=== PATIENT | female | born 1995 | race African-American/Black ===

== ENCOUNTER 2016-12-27 13:14 | Observation (INO) | payer MEDICAID ==
[2016-12-27] MEDS ORDERED: PREN-88 PO (14:32)
== END 2016-12-27 14:45 | disposition home or self-care (01) ==
LOC: L&D 13:14
PROVIDERS: ADMIT Obstetrics & Gynecology; ATTEND Obstetrics & Gynecology
DX: O26.892 Other specified pregnancy related conditions, second trimester (principal); R42 Dizziness and giddiness; Z3A.25 25 weeks gestation of pregnancy
CPT/HCPCS: 82962; 99281; G0378

== ENCOUNTER 2017-08-01 09:48 | Emergency (ER) | payer MEDICAID, MEDICARE ==
[~2017-08-01] VITALS: Ht 167.6 cm; Wt 75.0 kg
[~2017-08-01 09:48] MED LIST: PREN-88 PO
[2017-08-01 09:58] VITALS: BP 133/83
[2017-08-01] MEDS ORDERED: GUAIFENESIN-DM 200MG-20MG/10ML UDC PO ONE (10:15)
== END 2017-08-01 12:12 | disposition home or self-care (01) ==
LOC: ER 10:34
DX: J06.9 Acute upper respiratory infection, unspecified (principal); F12.10 Cannabis abuse, uncomplicated
CPT/HCPCS: 71045; 81025; 87804; 99285

== ENCOUNTER 2018-03-26 11:51 | Emergency (ER) | payer MEDICARE ==
[~2018-03-26] VITALS: Ht 167.6 cm; Wt 73.0 kg
[2018-03-26 12:11] VITALS: BP 116/83
== END 2018-03-26 17:37 | disposition home or self-care (01) ==
LOC: ER 11:51
DX: J06.9 Acute upper respiratory infection, unspecified (principal); Z91.040 Latex allergy status
CPT/HCPCS: 71045; 81025; 99283

== ENCOUNTER 2018-08-09 22:47 | Emergency (ER) | payer MEDICARE ==
[~2018-08-09] VITALS: Ht 167.6 cm; Wt 77.0 kg
[2018-08-09 23:18] VITALS: BP 108/50
== END 2018-08-10 02:23 | disposition left against medical advice (07) ==
LOC: ER 22:47
DX: Z53.21 Procedure and treatment not carried out due to patient leaving prior to being seen by health care provider (principal)

== ENCOUNTER 2019-01-02 13:54 | Day surgery (SDC) | payer MEDICAID, MEDICARE ==
[~2019-01-02] VITALS: Ht 167.6 cm; Wt 72.0 kg
[2019-01-02] MEDS ORDERED: SODIUM CHLORIDE 0.9% 1,000 ML IV ONE (14:11)
[2019-01-02] MEDS ORDERED: ONDANSETRON HCL 4MG/2ML INJ IV ONE ×2 (14:15→17:00)
[2019-01-02] MEDS ORDERED: CEFAZOLIN 1000MG PREMIX 50 ML IV ONE (14:15)
[2019-01-02] MEDS ORDERED: MORPHINE SULFATE 4 MG/ML CPJ (NOT FOR IM USE) IV ONE ×2 (14:15→17:00)
[2019-01-02 15:09] LABS: BASOPHILS % 0.4 % (0.0-2.0); EOSINOPHILS % 0.4 % (0.0-5.0); HEMATOCRIT. 26.1 % (36.0-48.0); HEMOGLOBIN. 8.5 g/dL (12.0-16.0); LYMPHOCYTES % 12.8 % (20.0-50.0); MEAN CORPUSCULAR HEMOGLOBIN 22.3 pg (28.0-32.0); MEAN CORPUSCULAR VOLUME 68.3 fL (81.0-99.0); MEAN PLATELET VOLUME 8.9 fl (7.4-10.4); MONOCYTES % 5.1 % (2.0-8.0); NEUTROPHILS % 81.3 % (40.0-76.0); PLATELET 209 x1000/uL (130-400); RED BLOOD CELL COUNT 3.82 mill/uL (4.2-5.4); RED CELL DISTRIBUTION WIDTH 19.7 % (11.6-14.6)
[2019-01-02 15:16] LABS: CHLORIDE 111 mEq/L (98-107)
[2019-01-02 15:17] LABS: INR 0.9; PARTIAL THROMBOPLASTIN TIME 26.6 sec (23.4-31.0); PROTHROMBIN TIME 9.7 sec (9.6-11.0)
[2019-01-02 15:41] LABS: B-HCG QUANTITATIVE 6285 mIU/mL (<3)
[2019-01-02 15:45] LABS: PLATELET ESTIMATE NORMAL
[2019-01-02 16:21] LABS: CLARITY URINE CLOUDY (CLEAR); COLOR URINE RED (YELLOW); KETONES URINE TRACE (NEGATIVE); LEUKOCYTE ESTERASE URINE 2+ (NEGATIVE); NITRITE URINE NEGATIVE (NEGATIVE); OCCULT BLOOD URINE 3+ (NEGATIVE); PH URINE 7.5 (4.5-8.0); PROTEIN URINE 2+ (NEGATIVE); SPECIFIC GRAVITY URINE 1.027 (1.005-1.030)
[2019-01-02 16:36] LABS: PHENCYCLIDINE URINE SCREEN NEGATIVE (NEGATIVE)
[2019-01-02 16:37] LABS: *AMPHETAMINES SCREEN URINE NEGATIVE (NEGATIVE); *BARBITURATES SCREEN URINE NEGATIVE (NEGATIVE); *BENZODIAZEPINES SCREEN URINE NEGATIVE (NEGATIVE); *COCAINE SCREEN URINE NEGATIVE (NEGATIVE); METHADONE URINE SCREEN NEGATIVE (NEGATIVE)
[2019-01-02 16:39] LABS: CANNABINOID URINE SCREEN PRESUMTIVE POSITIVE (NEGATIVE); OPIATES URINE SCREEN PRESUMTIVE POSITIVE (NEGATIVE)
[2019-01-02] MEDS ORDERED: FENTANYL CITRATE/PF 50MCG/ML 2ML VIAL IV PRN (17:45)
[2019-01-02] MEDS ORDERED: HYDROMORPHONE HCL/PF 2MG/ML CPJ IV PRN (17:45)
[2019-01-02] MEDS ORDERED: ONDANSETRON HCL 4MG/2ML INJ IV PRN ×2 (17:45→20:15)
[2019-01-02] MEDS ORDERED: PROPOFOL 200MG/20ML VIAL IV ONE ×2 (17:53→19:49)
[2019-01-02] MEDS ORDERED: LIDOCAINE HCL/PF 1% 10 MG/ML 5ML VIAL ONE (17:54)
[2019-01-02] MEDS ORDERED: MIDAZOLAM HCL 2 MG/2 ML VIAL ONE (17:54)
[2019-01-02 18:09] LABS: HEMOGLOBIN 8.1 g/dL (12.0-16.0); MEAN CORPUSCULAR HEMOGLOBIN 22.1 pg (28.0-32.0); MEAN CORPUSCULAR VOLUME 68.2 fL (81.0-99.0); PLATELET 193 x1000/uL (130-400); RED BLOOD CELL COUNT 3.67 mill/uL (4.2-5.4); RED CELL DISTRIBUTION WIDTH 19.9 % (11.6-14.6)
[2019-01-02] MEDS ORDERED: OXYTOCIN 10 UNITS/ML 1ML ONE (18:29)
[2019-01-02 18:30] VITALS: BP 112/58
[2019-01-02] MEDS ORDERED: KETAMINE HCL 50 MG/ML 10ML ONE (19:06)
[2019-01-02] MEDS ORDERED: KETOROLAC 30MG/ML VIAL ONE (19:59)
[2019-01-02] MEDS ORDERED: DEXT 5%/0.45% NACL KCL 20MEQ/L 1,000 ML IV SCH (20:02)
[2019-01-02] MEDS ORDERED: METHYLERGONOVINE MALEATE 0.2 MG/ML ONE (20:09)
[2019-01-02] MEDS ORDERED: ONDANSETRON HCL 4MG/2ML INJ IM PRN (22:00)
[2019-01-05] MEDS ORDERED: ALBUTEROL (0.083%) 2.5MG/3ML NEB ONE (11:53)
== END 2019-01-02 22:25 | disposition home or self-care (01) ==
LOC: ER 13:54 → EDBEDREQ 17:28 → OR 19:18 → ENRESERV 19:49 → OR 22:25
PROVIDERS: ATTEND Specialist
DX: O03.4 Incomplete spontaneous abortion without complication (principal); D64.9 Anemia, unspecified; Z91.040 Latex allergy status
CPT/HCPCS: 36415; 59812; 76801; 76817; 80053; 80305; 81003; 81025; 84702; 85025; 85027; 85610; 85730; 86850; 86900; 86901; 86920; 87077; 87086; 87186; 88305; 93005; 96365; 96375; 96376; 99291; J0690; J1885; J2210; J2250; J2270; J2405; J2704; J3010; J3490; J7030; J7611

== ENCOUNTER 2019-07-03 12:30 | Emergency (ER) | payer MEDICAID ==
[~2019-07-03] VITALS: Ht 167.6 cm; Wt 81.0 kg
[2019-07-03] MEDS ORDERED: SODIUM CHLORIDE 0.9% 1,000 ML IV ONE (13:14)
[2019-07-03] MEDS ORDERED: ONDANSETRON HCL 4MG/2ML INJ IV ONE (13:15)
[2019-07-03 14:23] LABS: BASOPHILS % 0.3 % (0.0-2.0); EOSINOPHILS % 0.1 % (0.0-5.0); HEMOGLOBIN. 11.1 g/dL (12.0-16.0); LYMPHOCYTES % 15.7 % (20.0-50.0); MEAN CORPUSCULAR HEMOGLOBIN 20.7 pg (28.0-32.0); MEAN CORPUSCULAR VOLUME 63.6 fL (81.0-99.0); MEAN PLATELET VOLUME 8.8 fl (7.4-10.4); MONOCYTES % 6.4 % (2.0-8.0); NEUTROPHILS % 77.5 % (40.0-76.0); PLATELET 307 x1000/uL (130-400); RED BLOOD CELL COUNT 5.35 mill/uL (4.2-5.4); RED CELL DISTRIBUTION WIDTH 19.9 % (11.6-14.6)
[2019-07-03 14:27] LABS: CHLORIDE 103 mEq/L (98-107)
[2019-07-03 14:38] LABS: CLARITY URINE CLOUDY (CLEAR); COLOR URINE YELLOW (YELLOW); KETONES URINE 3+ (NEGATIVE); LEUKOCYTE ESTERASE URINE TRACE (NEGATIVE); NITRITE URINE NEGATIVE (NEGATIVE); OCCULT BLOOD URINE NEGATIVE (NEGATIVE); PH URINE 5.5 (4.5-8.0); PROTEIN URINE 1+ (NEGATIVE); SPECIFIC GRAVITY URINE 1.037 (1.005-1.030)
[2019-07-03 14:58] LABS: B-HCG QUANTITATIVE 48945 mIU/mL (<3)
[2019-07-03 15:06] LABS: PLATELET ESTIMATE NORMAL
[2019-07-03 15:46] LABS: *AMPHETAMINES SCREEN URINE NEGATIVE (NEGATIVE); *BARBITURATES SCREEN URINE NEGATIVE (NEGATIVE); *BENZODIAZEPINES SCREEN URINE NEGATIVE (NEGATIVE); *COCAINE SCREEN URINE NEGATIVE (NEGATIVE); PHENCYCLIDINE URINE SCREEN NEGATIVE (NEGATIVE)
[2019-07-03 15:47] LABS: METHADONE URINE SCREEN NEGATIVE (NEGATIVE); OPIATES URINE SCREEN NEGATIVE (NEGATIVE)
[2019-07-03 15:52] LABS: CANNABINOID URINE SCREEN PRESUMTIVE POSITIVE (NEGATIVE)
[2019-07-03 16:52] VITALS: BP 107/46
== END 2019-07-03 16:55 | disposition home or self-care (01) ==
LOC: ER 13:03
DX: O23.41 Unspecified infection of urinary tract in pregnancy, first trimester (principal); O26.891 Other specified pregnancy related conditions, first trimester; O21.9 Vomiting of pregnancy, unspecified; R53.1 Weakness; Z3A.01 Less than 8 weeks gestation of pregnancy; Z91.040 Latex allergy status
CPT/HCPCS: 36415; 76801; 76817; 80053; 80305; 81003; 81025; 84484; 84702; 85025; 86850; 86900; 86901; 93005; 96361; 96374; 99284; J2405; J7030

== ENCOUNTER 2019-08-21 09:19 | Emergency (ER) | payer MEDICAID ==
[~2019-08-21] VITALS: Ht 175.3 cm; Wt 77.0 kg
[2019-08-21] MEDS ORDERED: ACETAMINOPHEN 325MG TABLET PO STA (09:41)
[2019-08-21] MEDS ORDERED: ONDANSETRON HCL 4MG/2ML INJ IV STA (09:41)
[2019-08-21] MEDS ORDERED: SODIUM CHLORIDE 0.9% 1,000 ML IV ONE (09:41)
[2019-08-21 09:55] LABS: HEMATOCRIT. 31.6 % (36.0-48.0); HEMOGLOBIN. 10.3 g/dL (12.0-16.0); MEAN CORPUSCULAR VOLUME 64.4 fL (81.0-99.0); MEAN PLATELET VOLUME 8.8 fl (7.4-10.4); PLATELET 269 x1000/uL (130-400); RED BLOOD CELL COUNT 4.91 mill/uL (4.2-5.4); RED CELL DISTRIBUTION WIDTH 20.7 % (11.6-14.6)
[2019-08-21 10:01] LABS: CHLORIDE 99 mEq/L (98-107)
[2019-08-21 10:03] LABS: INR 0.9
[2019-08-21 10:25] LABS: PLATELET ESTIMATE NORMAL
[2019-08-21 11:17] LABS: CLARITY URINE CLOUDY (CLEAR); COLOR URINE YELLOW (YELLOW); KETONES URINE 4+ (NEGATIVE); LEUKOCYTE ESTERASE URINE NEGATIVE (NEGATIVE); NITRITE URINE POSITIVE (NEGATIVE); OCCULT BLOOD URINE NEGATIVE (NEGATIVE); PH URINE 6.5 (4.5-8.0); PROTEIN URINE TRACE (NEGATIVE); SPECIFIC GRAVITY URINE 1.028 (1.005-1.030); UROBILINOGEN URINE 0.2 E.U./dL (0.2-1.0)
[2019-08-21 11:37] VITALS: BP 110/62
== END 2019-08-21 11:41 | disposition home or self-care (01) ==
LOC: ER 09:19
DX: R11.2 Nausea with vomiting, unspecified (principal); R51 Headache; M54.9 Dorsalgia, unspecified; Z91.040 Latex allergy status
CPT/HCPCS: 36415; 80053; 81003; 81025; 83690; 85025; 85610; 96374; 99285; J2405; J7030

== ENCOUNTER 2020-03-03 00:15 | Emergency (ER) | payer MEDICAID ==
[~2020-03-03] VITALS: Ht 167.6 cm; Wt 73.0 kg
[2020-03-03 01:06] LABS: BASOPHILS % 1.1 % (0.0-2.0); EOSINOPHILS % 0.7 % (0.0-5.0); HEMATOCRIT. 34.7 % (36.0-48.0); HEMOGLOBIN. 11.1 g/dL (12.0-16.0); LYMPHOCYTES % 30.4 % (20.0-50.0); MEAN CORPUSCULAR VOLUME 68.7 fL (81.0-99.0); MEAN PLATELET VOLUME 8.4 fl (7.4-10.4); MONOCYTES % 6.9 % (2.0-8.0); NEUTROPHILS % 60.9 % (40.0-76.0); PLATELET 306 x1000/uL (130-400); RED BLOOD CELL COUNT 5.05 mill/uL (4.2-5.4); RED CELL DISTRIBUTION WIDTH 19.1 % (11.6-14.6)
[2020-03-03 01:09] LABS: PLATELET ESTIMATE NORMAL
[2020-03-03 01:11] LABS: CHLORIDE 105 mEq/L (98-107)
[2020-03-03 01:23] LABS: CLARITY URINE CLEAR (CLEAR); COLOR URINE YELLOW (YELLOW); KETONES URINE TRACE (NEGATIVE); LEUKOCYTE ESTERASE URINE TRACE (NEGATIVE); NITRITE URINE NEGATIVE (NEGATIVE); OCCULT BLOOD URINE 3+ (NEGATIVE); PROTEIN URINE 1+ (NEGATIVE); SPECIFIC GRAVITY URINE 1.032 (1.005-1.030)
[2020-03-03] MEDS ORDERED: ACETAMINOPHEN 500MG TABLET PO ONE (01:30)
[2020-03-03 01:47] LABS: B-HCG QUANTITATIVE 1762 mIU/mL (<3)
[2020-03-03] MEDS ORDERED: CEPHALEXIN 250MG CAPSULE PO NR (02:45)
[2020-03-03 03:30] VITALS: BP 107/56
== END 2020-03-03 03:36 | disposition home or self-care (01) ==
LOC: ER 00:43
DX: O03.9 Complete or unspecified spontaneous abortion without complication (principal); Z3A.01 Less than 8 weeks gestation of pregnancy
CPT/HCPCS: 36415; 76801; 80053; 81003; 84702; 85025; 86850; 86900; 93005; 99285

== ENCOUNTER 2020-08-26 18:40 | Emergency (ER) | payer MEDICAID ==
[~2020-08-26] VITALS: Ht 167.6 cm; Wt 78.0 kg
[2020-08-26 19:22] LABS: HEMATOCRIT 37.5 % (36.0-48.0); HEMOGLOBIN 12.2 g/dL (12.0-16.0); MEAN CORPUSCULAR HEMOGLOBIN 22.9 pg (28.0-32.0); MEAN CORPUSCULAR VOLUME 70.4 fL (81.0-99.0); PLATELET 278 x1000/uL (130-400); RED BLOOD CELL COUNT 5.32 mill/uL (4.2-5.4); RED CELL DISTRIBUTION WIDTH 18.1 % (11.6-14.6)
[2020-08-26] MEDS ORDERED: MORPHINE SULFATE 4 MG/ML CPJ (NOT FOR IM USE) IV PRN (19:30)
[2020-08-26] MEDS ORDERED: MORPHINE SULFATE 10 MG/ML CPJ IV ONE (19:30)
[2020-08-26 19:33] LABS: HCG SCREEN POSITIVE
[2020-08-26 23:33] VITALS: BP 119/69
== END 2020-08-26 23:36 | disposition home or self-care (01) ==
LOC: ER 18:40
DX: O26.891 Other specified pregnancy related conditions, first trimester (principal); R10.2 Pelvic and perineal pain; Z3A.00 Weeks of gestation of pregnancy not specified; Z91.040 Latex allergy status
CPT/HCPCS: 36415; 76801; 76817; 84702; 84703; 85027; 86900; 86901; 96374; 99284; J2270; Z7610

== ENCOUNTER 2020-08-28 14:33 | Emergency (ER) | payer MEDICAID ==
[~2020-08-28] VITALS: Ht 167.6 cm; Wt 77.0 kg
[2020-08-28 15:52] LABS: BASOPHILS % 0.4 % (0.0-2.0); EOSINOPHILS % 0.5 % (0.0-5.0); HEMATOCRIT. 37.6 % (36.0-48.0); HEMOGLOBIN. 12.1 g/dL (12.0-16.0); LYMPHOCYTES % 28.5 % (20.0-50.0); MEAN CORPUSCULAR HEMOGLOBIN 22.7 pg (28.0-32.0); MEAN CORPUSCULAR VOLUME 70.5 fL (81.0-99.0); MEAN PLATELET VOLUME 8.6 fl (7.4-10.4); NEUTROPHILS % 63.6 % (40.0-76.0); PLATELET 258 x1000/uL (130-400); RED BLOOD CELL COUNT 5.33 mill/uL (4.2-5.4)
[2020-08-28 15:59] LABS: CHLORIDE 105 mEq/L (98-107)
[2020-08-28 16:07] LABS: CLARITY URINE CLOUDY (CLEAR); COLOR URINE ORANGE (YELLOW); KETONES URINE 2+ (NEGATIVE); LEUKOCYTE ESTERASE URINE 1+ (NEGATIVE); NITRITE URINE POSITIVE (NEGATIVE); OCCULT BLOOD URINE 3+ (NEGATIVE); PROTEIN URINE 2+ (NEGATIVE); SPECIFIC GRAVITY URINE 1.036 (1.005-1.030)
[2020-08-28 16:25] LABS: B-HCG QUANTITATIVE 2480 mIU/mL (<3)
[2020-08-28] MEDS ORDERED: CEPH500C2 MT (17:14)
[2020-08-28] MEDS ORDERED: PYRIDOXINE HCL 50MG TABLET PO ONE (17:15)
[2020-08-28] MEDS ORDERED: MORPHINE SULFATE 4 MG/ML CPJ (NOT FOR IM USE) IV ONE (17:15)
[2020-08-28] MEDS ORDERED: ACETAMINOPHEN 325MG TABLET PO ONE (17:15)
[2020-08-28 18:30] VITALS: BP 125/69
== END 2020-08-28 18:48 | disposition home or self-care (01) ==
LOC: ER 14:33
DX: O20.9 Hemorrhage in early pregnancy, unspecified (principal); O23.41 Unspecified infection of urinary tract in pregnancy, first trimester; Z3A.01 Less than 8 weeks gestation of pregnancy; Z91.040 Latex allergy status
CPT/HCPCS: 36415; 76830; 76856; 80053; 81003; 81025; 84702; 85025; 86850; 86900; 86901; 93005; 96374; 99285; J2270